=== PATIENT | female | born 1945 | race African-American/Black ===

== ENCOUNTER 2022-03-28 18:42 | Emergency (ER) | payer MEDICARE, MEDICAID ==
[~2022-03-28] VITALS: Ht 170.2 cm; Wt 74.0 kg
[2022-03-28] MEDS ORDERED: IBUPROFEN 600MG TABLET PO STA (22:34)
[2022-03-29] MEDS ORDERED: OMEP20TA23 PO (02:19)
[2022-03-29] MEDS ORDERED: NAPR-681 PO (02:19)
[2022-03-29 02:25] VITALS: BP 112/68
== END 2022-03-29 02:25 | disposition home or self-care (01) ==
LOC: ER 18:42
DX: S60.221A Contusion of right hand, initial encounter (principal); S00.03XA Contusion of scalp, initial encounter; S60.211A Contusion of right wrist, initial encounter; M24.561 Contracture, right knee; I10 Essential (primary) hypertension; E78.00 Pure hypercholesterolemia, unspecified; Z88.5 Allergy status to narcotic agent; Z98.890 Other specified postprocedural states; Z90.49 Acquired absence of other specified parts of digestive tract; Z86.59 Personal history of other mental and behavioral disorders; W01.0XXA Fall on same level from slipping, tripping and stumbling without subsequent striking against object, initial encounter; Y93.89 Activity, other specified; Y92.89 Other specified places as the place of occurrence of the external cause; Y99.8 Other external cause status
CPT/HCPCS: 70486; 73030; 73110; 73130; 73502; 73562; 73564; 99284

== ENCOUNTER 2022-06-02 16:12 | Inpatient (IN) | payer MEDICARE, MEDICAID ==
[~2022-06-02] VITALS: Ht 170.2 cm; Wt 73.5 kg
[~2022-06-02 16:12] MED LIST: NAPR-681 PO; OMEP20TA23 PO
[2022-06-02 21:45] LABS: BASOPHILS % 0.5 % (0.0-2.0); EOSINOPHILS % 1.3 % (0.0-5.0); HEMATOCRIT. 36.3 % (36.0-48.0); HEMOGLOBIN. 12.2 g/dL (12.0-16.0); LYMPHOCYTES % 26.9 % (20.0-50.0); MEAN CORPUSCULAR HEMOGLOBIN 32.6 pg (28.0-32.0); MEAN PLATELET VOLUME 7.6 fl (7.4-10.4); MONOCYTES % 7.3 % (2.0-8.0); PLATELET 274 x1000/uL (130-400); RED BLOOD CELL COUNT 3.74 mill/uL (4.2-5.4); RED CELL DISTRIBUTION WIDTH 12.7 % (11.6-14.6)
[2022-06-02 21:59] LABS: CHLORIDE 102 mEq/L (98-107)
[2022-06-02] MEDS ORDERED: SODIUM CHLORIDE 0.9% 1,000 ML IV ONE (23:00)
[2022-06-02] MEDS ORDERED: PANTOPRAZOLE SODIUM 40 MG/VIAL IV ONE (23:00)
[2022-06-03] MEDS ORDERED: GUAIFENESIN 200MG/10ML SUGAR FREE UDC PO PRN (00:30)
[2022-06-03] MEDS ORDERED: DOCUSATE SODIUM 100MG CAPSULE PO PRN (00:30)
[2022-06-03] MEDS ORDERED: CLONIDINE 0.1MG TABLET PO PRN (00:30)
[2022-06-03] MEDS ORDERED: MAGNESIUM/ALUMINUM HYDROXIDE/SIMETHICONE 30ML UDC PO PRN (00:30)
[2022-06-03] MEDS ORDERED: ONDANSETRON HCL 4MG/2ML INJ IV PRN (00:30)
[2022-06-03] MEDS ORDERED: ONDANSETRON HCL 4MG/2ML INJ IV STA (01:08)
[2022-06-03] MEDS ORDERED: MORPHINE SULFATE 4 MG/ML CPJ (NOT FOR IM USE) IV STA (01:08)
[2022-06-03] MEDS: LISINOPRIL 5MG TABLET PO SCH ×3 (01:30→16:26)
[2022-06-03] MEDS: LEVOFLOXACIN 500MG PREMIX 100 ML IV SCH (01:48)
[2022-06-03] MEDS: ACETAMINOPHEN 325MG TABLET PO PRN ×3 (01:50→05:16)
[2022-06-03] MEDS ORDERED: MVI, ADULT NO.1 10 ML, FOLIC ACID 1 MG, THIAMINE HCL 100 MG in DEXT 5%/0.9% NACL 1,000 ML IV SCH ×4 (02:00)
[2022-06-03] MEDS ORDERED: METRONIDAZOLE 500 MG PREMIX 100 ML IV SCH (06:00)
[2022-06-03 08:46] LABS: PARTIAL THROMBOPLASTIN TIME 27.1 sec (23.4-31.0); PROTHROMBIN TIME 10.8 sec (9.6-11.0)
[2022-06-03] MEDS ORDERED: ENOXAPARIN 40MG/0.4ML SYR SUBCUT SCH (09:00)
[2022-06-03] MEDS ORDERED: FAMOTIDINE 20MG/2ML VIAL IV SCH (09:00)
[2022-06-03] MEDS: PHENOBARBITAL 30 MG TABLET PO SCH ×2 (10:52→16:26)
[2022-06-03] MEDS: PANTOPRAZOLE SODIUM 40 MG/VIAL IV SCH (10:52)
[2022-06-03 12:59] LABS: CLARITY URINE CLEAR (CLEAR); COLOR URINE YELLOW (YELLOW); KETONES URINE NEGATIVE (NEGATIVE); LEUKOCYTE ESTERASE URINE 1+ (NEGATIVE); NITRITE URINE NEGATIVE (NEGATIVE); OCCULT BLOOD URINE NEGATIVE (NEGATIVE); PH URINE 6.5 (4.5-8.0); PROTEIN URINE NEGATIVE (NEGATIVE); SPECIFIC GRAVITY URINE 1.008 (1.005-1.030); UROBILINOGEN URINE 0.2 E.U./dL (0.2-1.0)
[2022-06-03 13:39] LABS: *AMPHETAMINES SCREEN URINE NEGATIVE (NEGATIVE); *BARBITURATES SCREEN URINE PRESUMTIVE POSITIVE (NEGATIVE); *BENZODIAZEPINES SCREEN URINE NEGATIVE (NEGATIVE); *COCAINE SCREEN URINE NEGATIVE (NEGATIVE); CANNABINOID URINE SCREEN NEGATIVE (NEGATIVE); METHADONE URINE SCREEN NEGATIVE (NEGATIVE); OPIATES URINE SCREEN NEGATIVE (NEGATIVE); PHENCYCLIDINE URINE SCREEN NEGATIVE (NEGATIVE)
[2022-06-03 14:38] VITALS: BP 149/88
[2022-06-03] MEDS ORDERED: HYDR25TA PO (15:05)
[2022-06-03] MEDS ORDERED: ASPI-986 PO (15:05)
[2022-06-03] MEDS ORDERED: PHEN100C4 PO (15:05)
[2022-06-03] MEDS ORDERED: OXYB5TAB17 PO (15:05)
[2022-06-03] MEDS ORDERED: PHEN32.46 PO (15:05)
[2022-06-03] MEDS ORDERED: RAMI5CAP65 PO (15:05)
[2022-06-03 16:00] VITALS: BP 135/80
[2022-06-03 18:04] LABS: BASOPHILS % 0.8 % (0.0-2.0); EOSINOPHILS % 1.6 % (0.0-5.0); HEMATOCRIT. 32.4 % (36.0-48.0); HEMOGLOBIN. 10.7 g/dL (12.0-16.0); LYMPHOCYTES % 20.2 % (20.0-50.0); MEAN CORPUSCULAR HEMOGLOBIN 32.9 pg (28.0-32.0); MEAN CORPUSCULAR VOLUME 99.2 fL (81.0-99.0); MEAN PLATELET VOLUME 7.5 fl (7.4-10.4); MONOCYTES % 8.9 % (2.0-8.0); NEUTROPHILS % 68.5 % (40.0-76.0); PLATELET 222 x1000/uL (130-400); RED BLOOD CELL COUNT 3.27 mill/uL (4.2-5.4); RED CELL DISTRIBUTION WIDTH 12.5 % (11.6-14.6)
[2022-06-03 18:11] LABS: PROTHROMBIN TIME 10.9 sec (9.6-11.0)
[2022-06-03 18:21] LABS: CHLORIDE 108 mEq/L (98-107)
[2022-06-03 18:46] LABS: FERRITIN 36 ng/mL (10-291)
[2022-06-03 19:18] LABS: FOLIC ACID (FOLATE) SERUM > 20.00 ng/mL (>5.38); VITAMIN B12 SERUM > 2000.0 pg/mL (211-911)
[2022-06-03 20:29] VITALS: BP 135/55
[2022-06-03] MEDS: PHENYTOIN SODIUM EXTENDED 100MG CAPSULE PO SCH (21:13)
[2022-06-03] MEDS: METRONIDAZOLE 500 MG PREMIX 100 ML IV SCH (21:13)
[2022-06-03] MEDS: ATORVASTATIN CALCIUM 40MG TABLET PO SCH (21:13)
[2022-06-04] VITALS: BP 130/55
[2022-06-04] MEDS: LEVOFLOXACIN 500MG PREMIX 100 ML IV SCH (02:41)
[2022-06-04 04:00] VITALS: BP 144/60
[2022-06-04] MEDS: PHENYTOIN SODIUM EXTENDED 100MG CAPSULE PO SCH ×3 (06:10→20:54)
[2022-06-04] MEDS: METRONIDAZOLE 500 MG PREMIX 100 ML IV SCH ×3 (06:10→20:55)
[2022-06-04 07:21] LABS: CHLORIDE 111 mEq/L (98-107)
[2022-06-04 07:36] LABS: HEMOGLOBIN 10.5 g/dL (12.0-16.0); MEAN CORPUSCULAR HEMOGLOBIN 33.1 pg (28.0-32.0); MEAN CORPUSCULAR VOLUME 97.6 fL (81.0-99.0); PHOSPHORUS 2.6 mg/dL (2.5-4.9); PLATELET 206 x1000/uL (130-400); RED BLOOD CELL COUNT 3.17 mill/uL (4.2-5.4); RED CELL DISTRIBUTION WIDTH 12.5 % (11.6-14.6); T4 FREE 0.94 ng/dL (0.76-1.46)
[2022-06-04 08:00] VITALS: BP 146/93
[2022-06-04] MEDS: PANTOPRAZOLE SODIUM 40 MG/VIAL IV SCH (08:32)
[2022-06-04] MEDS: PHENOBARBITAL 30 MG TABLET PO SCH ×3 (08:32→16:23)
[2022-06-04] MEDS: LISINOPRIL 5MG TABLET PO SCH ×2 (08:35→16:28)
[2022-06-04] MEDS: ACETAMINOPHEN 325MG TABLET PO PRN (08:38)
[2022-06-04 12:00] VITALS: BP 119/72
[2022-06-04] MEDS: METOCLOPRAMIDE HCL 10MG/2ML VIAL IV SCH ×2 (13:31→17:09)
[2022-06-04 16:00] VITALS: BP 135/61
[2022-06-04] MEDS: SORBITOL 70% SOLN 30ML PO SCH ×2 (16:23→20:54)
[2022-06-04 20:00] VITALS: BP 121/48
[2022-06-04] MEDS: ATORVASTATIN CALCIUM 40MG TABLET PO SCH (20:54)
[2022-06-05] VITALS: BP 119/48
[2022-06-05] MEDS: METOCLOPRAMIDE HCL 10MG/2ML VIAL IV SCH ×3 (00:19→13:13)
[2022-06-05] MEDS ORDERED: LEVOFLOXACIN 500MG PREMIX 100 ML IV SCH (02:00)
[2022-06-05 03:31] LABS: CHLORIDE 115 mEq/L (98-107)
[2022-06-05 03:32] LABS: PROTHROMBIN TIME 10.8 sec (9.6-11.0)
[2022-06-05 03:35] LABS: BASOPHILS % 0.6 % (0.0-2.0); EOSINOPHILS % 0.3 % (0.0-5.0); HEMATOCRIT. 38.1 % (36.0-48.0); HEMOGLOBIN. 12.7 g/dL (12.0-16.0); LYMPHOCYTES % 17.1 % (20.0-50.0); MEAN CORPUSCULAR HEMOGLOBIN 32.5 pg (28.0-32.0); MEAN CORPUSCULAR VOLUME 97.4 fL (81.0-99.0); MEAN PLATELET VOLUME 8.3 fl (7.4-10.4); MONOCYTES % 6.7 % (2.0-8.0); NEUTROPHILS % 75.3 % (40.0-76.0); PLATELET 264 x1000/uL (130-400); RED BLOOD CELL COUNT 3.91 mill/uL (4.2-5.4); RED CELL DISTRIBUTION WIDTH 12.7 % (11.6-14.6)
[2022-06-05 04:00] VITALS: BP 126/66
[2022-06-05] MEDS: METRONIDAZOLE 500 MG PREMIX 100 ML IV SCH ×2 (05:37→13:22)
[2022-06-05] MEDS: PHENYTOIN SODIUM EXTENDED 100MG CAPSULE PO SCH ×2 (05:49→13:14)
[2022-06-05 08:08] VITALS: BP 156/87
[2022-06-05] MEDS: LISINOPRIL 5MG TABLET PO SCH ×2 (09:00→16:40)
[2022-06-05] MEDS: PHENOBARBITAL 30 MG TABLET PO SCH ×3 (09:00→16:40)
[2022-06-05] MEDS ORDERED: PROPOFOL 200MG/20ML VIAL IV ONE (11:13)
[2022-06-05] MEDS ORDERED: LIDOCAINE HCL 1% 10 MG/ML 10ML VIAL ONE (11:13)
[2022-06-05 12:00] VITALS: BP 156/63
[2022-06-05] MEDS ORDERED: HYDROMORPHONE HCL/PF 2MG/ML CPJ IV PRN (12:00)
[2022-06-05] MEDS ORDERED: MEPERIDINE HCL/PF 25MG/ML CPJ IV PRN (12:00)
[2022-06-05] MEDS ORDERED: LABETALOL 5MG/ML SYR 20 MG/4 ML SYRINGE IV PRN (12:00)
[2022-06-05] MEDS ORDERED: ONDANSETRON HCL 4MG/2ML INJ IV PRN (12:00)
[2022-06-05 15:44] VITALS: BP 132/73
[2022-06-05] MEDS ORDERED: LEVO-65 MT (15:46)
[2022-06-05] MEDS ORDERED: METR-167 PO (15:46)
[2022-06-05 15:47] VITALS: BP 132/73
[2022-06-06 14:08] LABS: OVA & PARASITE EXAM Final report (.)
[2022-06-09 13:09] LABS: ATYPICAL pANCA <1:20 titer (Neg:<1:20); SACCHAROMYCES CEREVISIAE IGG <20.0 Units (0.0-24.9)
[2022-06-10 13:06] LABS: SACCHAROMYCES CEREVISIAE IGM <20.0 Units (0.0-24.9)
== END 2022-06-05 18:31 | disposition home or self-care (01) | DRG 394 ==
LOC: ER 16:19 → MICUSO 23:46 → EDBEDREQ 23:52 → EDBEDREQTM 23:52 → 8WST 06-03 14:54
PROVIDERS: ADMIT Internal Medicine; ATTEND Internal Medicine
PROC: 0DJD8ZZ Inspection of Lower Intestinal Tract, Via Natural or Artificial Opening Endoscopic (ICD-10-PCS; principal; 2022-06-05)
DX: K64.8 Other hemorrhoids (principal); I31.39 Other pericardial effusion (noninflammatory); J90 Pleural effusion, not elsewhere classified; E83.52 Hypercalcemia; G40.909 Epilepsy, unspecified, not intractable, without status epilepticus; I10 Essential (primary) hypertension; E78.5 Hyperlipidemia, unspecified; E78.00 Pure hypercholesterolemia, unspecified; Z88.8 Allergy status to other drugs, medicaments and biological substances; Z87.11 Personal history of peptic ulcer disease; Z79.899 Other long term (current) drug therapy; Z90.710 Acquired absence of both cervix and uterus; K57.30 Diverticulosis of large intestine without perforation or abscess without bleeding; K52.9 Noninfective gastroenteritis and colitis, unspecified
CPT/HCPCS: 36415; 71045; 74176; 76700; 80048; 80053; 80076; 80185; 80305; 81003; 82270; 82607; 82728; 82746; 83735; 84100; 84439; 84443; 85025; 85027; 85044; 85379; 85651; 86256; 86671; 87015; 87045; 87177; 87209; 87426; 87427; 87449; 87493; 89055; 93005; 99285; C1893; C9113; J1956; J2270; J2405; J2704; J2765; J3411; J3490; J7030; J7042